=== PATIENT | female | born 1975 | race Caucasian/White ===

== ENCOUNTER 2017-12-13 13:00 | Emergency (ER) | payer SELFPAY ==
[~2017-12-13] VITALS: Ht 165.1 cm; Wt 85.0 kg
[~2017-12-13 13:00] MED LIST: TAMS0.4C67 PO
[2017-12-13 13:03] VITALS: PULSE 96; RESP 16; TEMP 98.9; O2SAT 99
[2017-12-13] MEDS ORDERED: LIDO1PAD52 TOPICAL (13:45)
[2017-12-13] MEDS ORDERED: BACL10TA PO (13:45)
--- NOTE | 2017-12-13 13:51 | PD ---
HPI Chief Complaint: Back/ Neck Pain or Injury Time Seen by Provider: 13:27 Travel History International Travel<30 days: No Contact w/Intl Traveler<30days: No Traveled to known affect area: No History of Present Illness HPI 42-year-old female presents to the emergency room for evaluation of mid back pain that started last night after lifting her grandmother to the edge of the bed. Pain is localized to the thoracic paraspinous musculature. Worse with certain range of motion. Improves at rest. Pain radiates down the left lower extremity. States she has been taking Tylenol and applying ice without any relief in symptoms. She denies fever, chills, paresthesias, saddle anesthesia, loss of bowel or bladder control, weight loss, night sweats, or IV drug use. Denies any other chronic medical conditions or daily medications. PFSH Past Medical History Cardiac Catheterization: Yes (2003) Cirrhosis: Yes Diminished Hearing: No Kidney Stones: Yes Respiratory: Yes (bronchitis) Pneumonia: Yes ?: Not LMP: 11/14/17 Social History Alcohol Use: Yes (OCCASIONALLY) Tobacco Use: No Substance Use: No Allergies-Medications (Allergen,Severity, Reaction): Coded Allergies: ketorolac (Unverified Allergy, Severe, RASH AND SOB, 12/13/17) methocarbamol (Unverified Allergy, Severe, 12/13/17) acetaminophen (Unverified Allergy, Mild, HIVES, 12/13/17) hydrocodone (Unverified Allergy, Mild, HIVES, 12/13/17) ibuprofen (Unverified Allergy, Mild, HIVES, 12/13/17) Uncoded Allergies: medrol (Allergy, Severe, throat swelling, 11/05/15) Reported Meds & Prescriptions Reported Meds & Active Scripts Active Lidocaine Patch 12 HR (Lidocaine) 5 % Patch 1 Patch TOPICAL DAILY Remove patch after 12 hours Baclofen 10 Mg Tab 10 Mg PO Q8HR Review of Systems Except as stated in HPI: all other systems reviewed are Neg Physical Exam Narrative GENERAL: Well-nourished, well-developed female no acute distress. Afebrile. Ambulatory. Lying and twisting without pain. SKIN: Focused skin assessment warm/dry. HEAD: Normocephalic. EYES: No scleral icterus. No injection or drainage. NECK: Supple, trachea midline. No JVD or lymphadenopathy. CARDIOVASCULAR: Regular rate and rhythm without murmurs, gallops, or rubs. RESPIRATORY: Breath sounds equal bilaterally. No accessory muscle use. BACK: No midline tenderness or obvious deformity. No CVA tenderness. Mild tenderness to palpation the bilateral paraspinous musculature of the thoracic spine. Data Data Last Documented VS Vital Signs Date Time Temp Pulse Resp B/P (MAP) Pulse Ox O2 Delivery O2 Flow Rate FiO2 12/13/17 13:03 98.9 96 16 99 MDM Medical Decision Making Medical Screen Exam Complete: Yes Emergency Medical Condition: Yes Medical Record Reviewed: Yes Differential Diagnosis Back strain, muscle spasm, fracture, drug-seeking behavior Narrative Course 42-year-old female presents to the emergency room for evaluation of back pain that started last night after lifting up her grandmother. Physical exam is unremarkable. Patient is ambulatory. No focal neurological deficits or midline tenderness. No red flag symptoms. No indication for imaging at this time. Patient has been diagnosed with drug-seeking behavior previously. [place]'s drug monitoring program revealed she has had #256 tramadol 50 mg tablets filled in the past 28 days. Patient did not reveal to me or the nurse that she is taking tramadol. She requested tramadol today. She was instead discharged with lidocaine and baclofen. Told to follow-up with her primary care physician or return for worsening symptoms. She understands and agrees to plan. Diagnosis Primary Impression: Back strain Qualified Codes: S39.012A - Strain of muscle, fascia and tendon of lower back , initial encounter Referrals: Primary Care Physician Additional Instructions: Rest and drink plenty of fluids. Take baclofen as directed, as needed for pain. Take your home tramadol as directed, as needed for pain. Apply ice to the affected area for 20 minutes at a time, as needed for pain and swelling. Follow-up with a primary care physician. Return to the emergency room for worsening symptoms. Med/Other Pt SpecificInfo: Prescription(s) given Scripts Lidocaine Patch 12 HR (Lidocaine Patch 12 HR) 5 % Patch 1 PATCH TOPICAL DAILY for Pain Management, #1 BOX 0 Refills Remove patch after 12 hours Prov: Karen Vargas MD 12/13/17 Baclofen (Baclofen) 10 Mg Tab 10 MG PO Q8HR, #12 TAB 0 Refills Prov: Karen Vargas MD 12/13/17 Disposition: 01 DISCHARGE HOME Condition: Stable Yudy Davies Dec 13, 2017 13:51
--- NOTE | 2017-12-13 13:58 | PD ---
Physical Exam Date Seen by Provider: Dec 13, 2017 Time Seen by Provider: 13:50 Narrative Please see physician child center assistant's documentation. Briefly this is a 42-year-old female who presents for mid back pain. No focal weakness, numbness, tingling, saddle paresthesias, bowel or bladder dysfunction. No fevers, chills, IV drug abuse. GENERAL: Alert, well nourished, well appearing patient resting on the bed in no acute distress. Vital Signs reviewed SKIN: Focused skin assessment warm/dry. HEAD: Atraumatic. Normocephalic. EYES: Pupils equal and round. No scleral icterus. No injection or drainage. ENT: No nasal bleeding or discharge. Mucous membranes pink and moist. NECK: Trachea midline. No JVD. Spontaneous, painless full range of motion with no meningismus MUSCULOSKELETAL: No obvious deformities. No clubbing. No cyanosis. No edema. Compartments are soft. No midline tenderness to palpation along entire spine. There is midthoracic paraspinal tenderness. NEUROLOGICAL: Awake and alert. No obvious cranial nerve deficits. Motor grossly within normal limits. Normal speech. Sensation intact. Normal gait. Negative straight leg raise bilaterally PSYCHIATRIC: Appropriate mood and affect; insight and judgment normal. Data Data Last Documented VS Vital Signs Date Time Temp Pulse Resp B/P (MAP) Pulse Ox O2 Delivery O2 Flow Rate FiO2 12/13/17 13:03 98.9 96 16 99 Orders Orders Ed Discharge Order (12/13/17 13:51) [facility] Medical Record Reviewed: Yes Supervised Visit with HOWIE: Yes Narrative Course Patient shows no evidence of spinal compromise in the emergency department. She is prescribed chronic pain medication which was reviewed by the physician child center assistant. Plan for discharge with supportive care, lidocaine patches, baclofen as needed for spasms and close outpatient follow-up with primary physician. Patient understands the importance of close outpatient follow-up. She understands she may require further testing and treatment as an outpatient. She understands strict return indications. She is comfortable with this plan and eager to go home. Diagnosis Primary Impression: Back strain Qualified Codes: S39.012A - Strain of muscle, fascia and tendon of lower back , initial encounter Referrals: Primary Care Physician Additional Instruction: Rest and drink plenty of fluids. Take baclofen as directed, as needed for pain. Take your home tramadol as directed, as needed for pain. Apply ice to the affected area for 20 minutes at a time, as needed for pain and swelling. Follow-up with a primary care physician. Return to the emergency room for worsening symptoms. Scripts Lidocaine Patch 12 HR (Lidocaine Patch 12 HR) 5 % Patch 1 PATCH TOPICAL DAILY for Pain Management, #1 BOX 0 Refills Remove patch after 12 hours Prov: Karen Vargas MD 12/13/17 Baclofen (Baclofen) 10 Mg Tab 10 MG PO Q8HR, #12 TAB 0 Refills Prov: Karen Vargas MD 12/13/17 Disposition: 01 DISCHARGE HOME Condition: Stable Karen Vargas MD Dec 13, 2017 13:58
== END 2017-12-13 14:21 | disposition home or self-care (01) ==
LOC: PHEFT 13:00
DX: S39.012A Strain of muscle, fascia and tendon of lower back, initial encounter (principal); K74.60 Unspecified cirrhosis of liver; X50.0XXA Overexertion from strenuous movement or load, initial encounter; Z87.442 Personal history of urinary calculi; Z88.5 Allergy status to narcotic agent; Z88.8 Allergy status to other drugs, medicaments and biological substances; Z79.899 Other long term (current) drug therapy
CPT/HCPCS: 99283